=== PATIENT | female | born 1960 | race American Indian/Alaskan Native ===

== ENCOUNTER 2018-02-09 05:54 | Day surgery (SDC) | payer MEDICAID ==
--- NOTE | 2018-02-09 09:30 | Anesthesia Day of Surgery ---
Anesthesia Day of Surgery - Day of Surgery Patient Examined: Yes Patient H&P Reviewed: Yes Patient is NPO: Yes
--- NOTE | 2018-02-09 09:30 | Anesthesia Consultation ---
Anesthesia Consult and Med Hx Date of service: 02/09/18 - Airway Anesthetic Teeth Evaluation: Edentulous ROM Head & Neck: Adequate Mental/Hyoid Distance: Adequate Mallampati Class: Class III Intubation Access Assessment: Probably Good - Pulmonary Exam CTA: Yes - Cardiac Exam Cardiac Exam: RRR - Pre-Operative Health Status ASA Pre-Surgery Classification: ASA3 Proposed Anesthetic Plan: MAC - Cardiovascular System Hx Hypertension: Yes - Central Nervous System CVA: Yes Hx Psychiatric Problems: Yes (Schizophrenia, Dementia) - Gastrointestinal Hx Ulcer: Yes - Other Systems Hx Alcohol Use: No Hx Substance Use: No Hx Cancer: No
[2018-02-09] MEDS ORDERED: NACL 0.9% 1000 ML 1,000 ML ONE (09:41)
[2018-02-09 10:03] VITALS: BP 147/80
[2018-02-09] MEDS ORDERED: WATER FOR IRRIG STERILE IR ONE (10:54)
[2018-02-09] MEDS ORDERED: TRIPLE ANTIBIOTIC TP ONE ×2 (10:54→11:30)
[2018-02-09] MEDS ORDERED: DIPRIVAN 10 MG/ML IV ONE ×2 (10:57)
[2018-02-09] MEDS ORDERED: XYLOCAINE MPF 2% ONE (11:00)
[2018-02-09] MEDS ORDERED: NACL 0.9% 1000 ML 1,000 ML IV SCH (11:00)
--- NOTE | 2018-02-09 13:15 | Operative Report ---
Operative Report Operative Report: Operative Report: Date of procedure: 02/09/2018 Procedure: Esophagogastroduodenoscopy with percutaneous endoscopic gastrostomy tube placement. Removal of foreign body from the stomach. Attending physician: Conrad Fu MD [employer] Librarian: Conrad Fu MD Indication: Patient is a 57-year-old female who presented with a history of cerebrovascular disease, feeding difficulty and oropharyngeal dysphagia. Patient has a malfunctioning gastrostomy tube with deterioration of the gastrostomy tube. An endoscopy is done under these circumstances in an attempt to remove the indwelling gastrostomy tube with a dislodged also, to place a percutaneous endoscopic gastrostomy tube for enteral feeding and administration of medications. Consent: Informed consent was obtained after advising the patients family regarding nature of this procedure, its indications, potential benefits as well as possible complications including but not limited to bleeding perforation and adverse reaction to medication, infection as well as other cardiopulmonary complications. An informed written and verbal consent was then obtained after due opportunity was provided for questions and answers. Monitoring: Patient was monitored continuously with pulse oximetry and electrocardiographic recordings as well as blood pressure recordings. Vital signs remained stable throughout this procedure with no untoward events. Preoperative assessment: Patient was assessed immediately prior to this procedure for capacity to tolerate monitored anesthesia care and moderate sedation as well as general anesthesia. Patient's ASA classification is 3, Mallampati class is 2, Hyomental distance is 3. Instrument: Mersive video endoscope. 20 Monegasque percutaneous endoscopic gastrostomy tube kit Medications: Propofol given intravenously in divided doses. For details please refer to anesthesia records. Description of procedure: Patient was placed in a supine position after achieving sedation, the endoscope was introduced into the esophagus under direct vision. It was then advanced beyond the esophagus into the stomach. In the stomach, at the pylorus, the internal bumper of the gastrostomy tube, was seen floating. It was grasped with a Myers net and retrieved. The endoscope was then reintroduced into the stomach and then advanced beyond the stomach into the duodenum and to the second portion of the duodenum. It was subsequently withdrawn back into the stomach. Subsequently, a precise location for the placement of the percutaneous endoscopic gastrostomy tube was identified after removing the malfunctioning gastrostomy tube and placing a guide wire which was grasped with a snare. Following this, a 20 Monegasque percutaneous endoscopic gastrostomy tube was successfully placed using the Ponsky pull-through method. The following endoscopic findings were noted. Findings: Esophagus was normal. Dislodged internal gastrostomy tube bumper seen in the stomach, removed with the Myers net.. There were mucosal changes suggestive of gastritis in the gastric antrum. A 20 Monegasque percutaneous endoscopic gastrostomy tube was successfully placed. The duodenum was normal to the second portion. Impression: Esophagogastroduodenoscopy with successful placement of a 20 Monegasque percutaneous endoscopic gastrostomy tube. Successful removal of a following body from the stomach. Mucosal changes, suggestive of possible gastritis. Plan: The tube site is currently at 3.0 cm. It should be cleaned daily with Betadine and peroxide. Triple Antibiotic should be applied daily to the site with dry gauze dressing a for at least 2-3 weeks. The tube site should be carefully inspected daily for any redness or discharge. The tube should be flushed with 100 mL of water every 6 hours. The tube should also be flushed additionally after administration medications or after completing a feeding session. Tube may be used for enteral feeding immediately. The tube may be used immediately for administration of medications. If the tube is accidentally dislodged, a assessment expert should be notified immediately. The advice however and recommendation is to begin tube feeding at a slow rate of 30 mL per hour and gradually increase as may be instructed after 8 hours. Residuals from the feeding tube should be checked every 3 hours for at least 24- 36 hours. If patient tolerates feeding, the feeding volume should be optimized as may advised by the dietitian. If patient has high residuals, then caution should be used in increasing the feeding rate to avoid aspiration. The head of the bed should be kept at 30 always.
--- NOTE | 2018-02-09 13:16 | Discharge Summary ---
Short Stay Discharge Plan Activity: fall precautions Weight Bearing Status: Non-Weight Bearing Diet: other (resume gastrostomy tube feeding as ordered) Follow up with: MIGDALIA LOPEZ MD [Primary Care Provider] - 7 Days
--- NOTE | 2018-02-09 14:26 | Post Anesthesia Evaluation ---
- Post Anesthesia Evaluation Patient Participated: Yes Airway Patent: Yes Stable Respiratory Function: Yes Nausea/Vomiting: No Temp > 96.8F: Yes Pain Manageable: Yes Adequeate Hydration: Yes Anesthesia Complications: No
== END 2018-02-09 05:55 | disposition home or self-care (01) ==
LOC: GIO 05:54
PROVIDERS: ATTEND Internal Medicine Gastroenterology
DX: K94.23 Gastrostomy malfunction (principal); I10 Essential (primary) hypertension; F03.90 Unspecified dementia, unspecified severity, without behavioral disturbance, psychotic disturbance, mood disturbance, and anxiety; F41.9 Anxiety disorder, unspecified; F20.9 Schizophrenia, unspecified; Z86.73 Personal history of transient ischemic attack (TIA), and cerebral infarction without residual deficits; Y83.3 Surgical operation with formation of external stoma as the cause of abnormal reaction of the patient, or of later complication, without mention of misadventure at the time of the procedure
CPT/HCPCS: 43246; J2704; J7030; A6250

== ENCOUNTER 2019-09-02 09:21 | Day surgery (SDC) | payer MEDICAID ==
[~2019-09-02 09:21] MED LIST: SODIUM CHLORIDE 0.9% 1000 ML 1,000 ML IV SCH
[2019-09-02 14:46] VITALS: BP 138/75
== END 2019-09-02 09:22 | disposition home or self-care (01) ==
LOC: GIO 09:21
PROVIDERS: ATTEND Internal Medicine Gastroenterology
DX: K31.6 Fistula of stomach and duodenum (principal); R63.3 Feeding difficulties; Z53.8 Procedure and treatment not carried out for other reasons; I10 Essential (primary) hypertension; F41.9 Anxiety disorder, unspecified; Z79.899 Other long term (current) drug therapy; Z79.82 Long term (current) use of aspirin; Z86.73 Personal history of transient ischemic attack (TIA), and cerebral infarction without residual deficits
CPT/HCPCS: J7030

== ENCOUNTER 2019-09-23 10:33 | Day surgery (SDC) | payer MEDICAID ==
[2019-09-23] MEDS ORDERED: SODIUM CHLORIDE 0.9% 1000 ML 1,000 ML ONE (11:57)
--- NOTE | 2019-09-23 13:11 | Anesthesia Consultation ---
Anesthesia Consult and Med Hx Date of service: 09/23/19 - Airway Anesthetic Teeth Evaluation: Edentulous ROM Head & Neck: Adequate Mental/Hyoid Distance: Adequate Mallampati Class: Class II Intubation Access Assessment: Probably Good - Pre-Operative Health Status ASA Pre-Surgery Classification: ASA3 Proposed Anesthetic Plan: MAC - Pulmonary Hx Smoking: Yes - Cardiovascular System Hx Hypertension: Yes Hx Valvular Heart Disease: Yes (Chronic ischemic heart disease) - Central Nervous System Hx Neuromuscular Disorder: Yes (Hemiparesis, dysphagia ) CVA: Yes Hx Psychiatric Problems: Yes (Schizophrenia, Dementia, Depression) - Gastrointestinal Hx Ulcer: Yes
--- NOTE | 2019-09-23 13:14 | Anesthesia Day of Surgery ---
Anesthesia Day of Surgery - Day of Surgery Patient Examined: Yes Patient H&P Reviewed: Yes Patient is NPO: Yes Beta Blockers: Yes
[2019-09-23] MEDS ORDERED: SODIUM CHLORIDE 0.9% 1000 ML 1,000 ML IV SCH (13:15)
[2019-09-23] MEDS ORDERED: PROPOFOL 200 MG/20 ML VIAL IV ONE ×2 (13:31→13:32)
--- NOTE | 2019-09-23 14:25 | Operative Report ---
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 Patient has had removal of the gastrostomy tube over a year ago due to return of patient's ability to take orally. She presents with a persistently draining gastrocutaneous fistula. This procedure, is done in an attempt to close the persistently draining gastrocutaneous fistula and hopefully treatment may be directed based on the findings. Consent: Informed consent was obtained after advising the patient and family regarding nature of this procedure, its indications, potential benefits as well as possible complications including but not limited to bleeding perforation and adverse reaction to medication, infection as well as other cardiopulmonary complications. An informed written and verbal consent was then obtained after due opportunity was provided for questions and answers. Monitoring: Patient was monitored continuously with pulse oximetry and electrocardiographic recordings as well as blood pressure recordings. Vital signs remained stable throughout this procedure with no untoward events. Preoperative assessment: Patient was assessed immediately prior to this procedure for capacity to tolerate monitored anesthesia care and moderate sedation as well as general anesthesia. Patient's ASA classification is 3, Mallampati class is 2, Hyomental distance is 3. Instrument: Olympus video endoscope: GIF [id number], argon plasma plate molder with a 7 Persian catheter, multiple hemoclips ([employer]) Medications: Propofol given intravenously in divided doses. For details please refer to anesthesia records. Description of procedure: Patient was placed in the left lateral decubitus position after achieving sedation, the endoscope was introduced into the esophagus under direct vision. It was then advanced beyond the esophagus into the stomach and then to the second portion of the duodenum. It was subsequently withdrawn with careful inspection of all mucosal surfaces with the following findings. Findings: The esophagus was normal. Patient had an obvious gastrocutaneous fistula with a fairly wide open fistula seen in the gastric body. In this area, the edges of the fistula were ablated using argon plasma coagulation. Subsequently, multiple hemoclips were applied with full closure of the aperture. There was mild erythema in the antrum otherwise no other gross mucosal abnormalities seen. The duodenum was normal to second portion. 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 Gastric antral erythema. Plan: Continue treatment with proton pump inhibitors. Follow patient clinically otherwise and observe for closure of a gastrocutaneous fistula. Patient will be observed clinically. Additional recommendations will be made follow-up.
--- NOTE | 2019-09-23 14:26 | Discharge Summary ---
Short Stay Discharge Plan Activity: advance as tolerated Weight Bearing Status: Weight Bear as Tolerated Diet: regular Additional Instructions: Avoid Aspirin NSAIDS D/C Instructions x 3 days Avoid the following for the time period specified by your physician: - Asprin(Alok, Bufferin, Excedrin, Goody's or BC Powders) -Ibuprofen (Advil or Motrin) -Naproxen (Aleve or Naprosyn) -Indomethacin, Sulindac, Etodolac, Diclofenac -Meloxicam, Piroxicam, Tenoxicam, Droxicam, Lornoxicam, Isoxicam - Mefenamic acid, Meclofenamic acid, Flufenamic acid, Tolfenamic acid -Celecoxib (Celebrex) Post Sedation D/C Instructions When you return home you may resume your regular diet unless otherwise directed. -Go directly home from the hospital and rest quietly. You may resume normal activities tomorrow. -Do NOT drive, return to work, operate any machinery or make any important personal or business decisions today. -Do NOT drink any alcohol or take nerve or sleeping drugs. They add to the effects of the medicine still present in your body. Follow up with: MIGDALIA LOPEZ MD [Primary Care Provider] - 7 Days
[2019-09-23 14:42] VITALS: BP 159/87
== END 2019-09-23 14:44 | disposition home or self-care (01) ==
LOC: GIO 10:33
PROVIDERS: ATTEND Internal Medicine Gastroenterology
DX: R63.3 Feeding difficulties (principal); K31.6 Fistula of stomach and duodenum; L03.90 Cellulitis, unspecified; E78.00 Pure hypercholesterolemia, unspecified; I10 Essential (primary) hypertension; F32.9 Major depressive disorder, single episode, unspecified; F41.9 Anxiety disorder, unspecified; F17.210 Nicotine dependence, cigarettes, uncomplicated; Z79.899 Other long term (current) drug therapy; Z79.82 Long term (current) use of aspirin; Z86.73 Personal history of transient ischemic attack (TIA), and cerebral infarction without residual deficits
CPT/HCPCS: 43270; J2704; J7030